=== PATIENT | male | born 1965 | race Caucasian/White ===

== ENCOUNTER 2016-02-19 00:13 | Emergency (ER) | payer OTHER ==
[~2016-02-19] VITALS: Ht 198.1 cm; Wt 135.6 kg
--- NOTE | 2016-02-19 00:44 | ED GI/GU/ABDOMINAL COMPLAINT ---
History of Present Illness General Chief Complaint: General Adult Stated Complaint: PER PT GLUCOSE 491, ABD PAIN Source: patient Exam Limitations: no limitations Vital Signs & Intake/Output Vital Signs & Intake/Output Vital Signs Date Time Temp Pulse Resp B/P Pulse O2 O2 Flow FiO2 Ox Delivery Rate 02/18 0550 97.6 67 18 144/81 94 Room Air 02/18 0026 98.4 83 18 150/91 96 Room Air Allergies Coded Allergies: No Known Allergies (02/19/16) Reconcile Medications Metformin HCl 500 MG TABLET 1 TAB PO QDAY diabetes take one tab a day x 4 days, then one tab in the morning and one tab in the afternoon. Triage Note: LT SIDED ABD PAIN STARTED 2 HRS AGO ELEVATED BS, PT IS NOT A DIAGNOSISED DIABETIC BUT HAS BEEN HAVING INCREASED THRIST,FREQUENCY,FATIGUE,WT LOSS OVER SEVERAL WEEKS Triage Nurses Notes Reviewed? yes Onset: Gradual Duration: day(s):, getting worse Timing: recent history Quality/Severity: cramping Location: left flank Radiation: no radiation Activities at Onset: none Prior Abdominal Problems: none Modifying Factors: Worsens With: palpation. Associated Symptoms: polydipsia, polyuria HPI: 50 yo gentleman h/o donating his kidney to his brother, presents with 1-2 days of polydipsia, polyuria, and generalized weakness. He notes that he bought a glucometer which read in 400's twice. He notes 1 day of left sided abdominal discomfort, but normal bowel movements. No nausea, vomiting, diarrhea, dysuria, fever. He notes that he is thirsty, feels tired, but is otherwise well. He has not seen a physician regularly, but notes that he had a negative stress test and benign labs (including a normal glucose) approximately 1 year ago. Past History Travel History Traveled to [place] past 21 day No Medical History Any Pertinent Medical History? see below for history Neurological: NONE EENT: NONE Cardiovascular: NONE Respiratory: NONE Gastrointestinal: NONE Hepatic: NONE Renal: 1 KIDNEY Musculoskeletal: NONE Psychiatric: NONE Endocrine: NONE Surgical History Surgical History: nephrectomy for donation Psychosocial History What is your primary language Cameroonian Tobacco Use: Never used Family History Hx Contributory? No Review of Systems Review of Systems Constitutional: Reports: no symptoms. EENTM: Reports: no symptoms. Respiratory: Reports: no symptoms. Cardiovascular: Reports: no symptoms. GI: Reports: no symptoms. Genitourinary: Reports: no symptoms. Musculoskeletal: Reports: no symptoms. Skin: Reports: no symptoms. Neurological/Psychological: Reports: no symptoms. Hematologic/Endocrine: Reports: no symptoms. Immunologic/Allergic: Reports: no symptoms. All Other Systems: Reviewed and Negative Physical Exam Physical Exam General Appearance: well developed/nourished, mild distress Head: atraumatic, normal appearance Eyes: Bilateral: normal appearance. Ears, Nose, Throat, Mouth: hearing grossly normal, dry mucosa Neck: normal inspection, supple, full range of motion Respiratory: normal breath sounds, chest non-tender, no respiratory distress, quiet respiration, lungs clear Cardiovascular: regular rate/rhythm Gastrointestinal: normal bowel sounds, soft, mild left sided tenderness. no rebound. no guarding. Back: normal inspection Extremities: normal range of motion Neurologic/Psych: no motor/sensory deficits, awake, alert, oriented x 3 Skin: intact Core Measures ACS in differential dx? No Severe Sepsis Present: No Septic Shock Present: No Progress Differential Diagnosis: cholecystitis, diverticulitis, gastritis, hepatitis, UTI /pyelo, dka Plan of Care: Orders Procedure Date/time Status TROPONIN LEVEL 02/18 0059 Complete LACTIC ACID 02/18 0057 Complete EKG 02/18 0018 Active MIXED VENOUS BLOOD GAS (GEN) 02/18 0016 Active URINALYSIS 02/18 0016 Complete LIPASE 02/18 0016 Complete HEPATIC FUNCTION PANEL 02/18 0016 Complete CBC WITHOUT DIFFERENTIAL 02/18 0016 Complete BASIC METABOLIC PANEL 02/18 0016 Complete AMYLASE 02/18 0016 Complete ACETONE 02/18 0016 Complete Laboratory Tests 02/19/16 0357: Lactic Acid Cancelled 02/19/16 0120: Urine Color STRAW, Urine Clarity CLEAR, Urine pH 6.0, Ur Specific Irving 1.015, Urine Protein TRACE H, Urine Ketones 40 H, Urine Nitrite NEG, Urine Bilirubin NEG, Urine Urobilinogen 0.2, Ur Leukocyte Esterase NEG, Ur Microscopic SEDIMENT EXAMINED, Urine RBC RARE, Urine WBC RARE, Ur Epithelial Cells RARE, Urine Hemoglobin TRACE-LYSED H, Urine Glucose >=1000 H 02/19/16 0100: Bicarbonate Actual 26, Mixed VBG pH 7.38, Mixed VBG pCO2 45, Mixed VBG O2 Saturation 30 L, P-50 (Temp Corrected) N, Carboxyhemoglobin 1.3 L, O2 Delivery Method N, Phlebotomy Draw Site VENOUS 02/19/1658: Lactic Acid 1.1 02/19/1658: Anion Gap 11, Estimated GFR > 60, BUN/Creatinine Ratio 21.1, Glucose 406 H, Calcium 9.2, Total Bilirubin 0.6, Direct Bilirubin 0.4, AST 24, ALT 47, Alkaline Phosphatase 137 H, Troponin I < 0.01, Total Protein 6.8, Albumin 3.6, Amylase < 30 L, Lipase 198, CBC w Diff NO MAN DIFF REQ, RBC 4.60 L, MCV 87.6, MCH 30.5, RDW 13.4, MPV 8.6, Gran % 53.8, Lymphocytes % 35.7, Monocytes % 6.0, Eosinophils % 3.8, Basophils % 0.7, Absolute Granulocytes 4.1, Absolute Lymphocytes 2.7, Absolute Monocytes 0.5, Absolute Eosinophils 0.3, Absolute Basophils 0.1, PUBS MCHC 34.8, Acetone Level NEGATIVE 02/19/1617: Troponin I Cancelled Diagnostic Imaging: Viewed by Me: CT Scan. Discussed w/RAD: CT Scan. Radiology Impression: ABD/PELVIC CT... NO ACUTE DISEASE.. ABSENT KIDNEY... FULL REPORT BELOW. Initial ED EKG: normal axis, normal intervals, normal p-waves, normal QRS complex, normal sinus rhythm Comments: PATIENT: TYLER WOOD PRESENT AGE: 50 PATIENT ACCOUNT NO: [id number] : 65 LOCATION: [facility] ORDERING PHYSICIAN: AGUILA WOOTEN MD SERVICE DATE: 02/19/16 EXAM TYPE: CAT - CT ABD & PELVIS W/O IV CONTRAS EXAMINATION: CT ABDOMEN AND PELVIS WITHOUT CONTRAST CLINICAL INFORMATION: Left-sided abdominal pain. COMPARISON: None. TECHNIQUE: Multidetector volumetric imaging was performed from the superior aspect of the liver through the pubic symphysis. Sagittal and coronal reformatted images were obtained on the technologist's workstation. DLP: 1628 mGy-cm. FINDINGS: LUNG BASES: The visualized lung bases are unremarkable. LIVER, GALLBLADDER, AND BILIARY TREE: Hepatic steatosis is characterized by hypoattenuation of the hepatic parenchyma relative to the spleen. Small foci of focal fatty sparing is seen around the gallbladder fossa. No focal bony lesions are identified. No biliary ductal dilatation. The gallbladder is unremarkable with no evidence of radiopaque gallstones, gallbladder wall thickening, or obvious pericholecystic inflammatory changes. PANCREAS: Unremarkable. SPLEEN: Unremarkable. ADRENAL GLANDS: Unremarkable. KIDNEYS AND URETERS: Left kidney is absent. There is a normal-appearing right kidney with no evidence of nephrolithiasis or hydronephrosis. Right ureter is normal. Minimal right perinephric stranding. BLADDER: Unremarkable. GASTROINTESTINAL TRACT: Stomach, small bowel, and colon are normal in caliber. No bowel wall thickening or surrounding acute inflammatory changes are identified. There is mild haziness of the central abdominal mesentery with a few subcentimeter lymph nodes. The pancreas is normal. No tears. No free fluid or free air. ABDOMINAL WALL: No significant hernia is appreciated. LYMPH NODES: Normal. VASCULAR: Unremarkable. PELVIC VISCERA: Unremarkable. OSSEOUS STRUCTURES: Degenerative disc disease is present in the lower lumbar spine. No fracture or malalignment. There is mild to moderate degenerative arthritis the hip joints with marginal acetabular osteophytes most notably. 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 IMPRESSION: 1. No acute intra-abdominal or intrapelvic abnormalities. 2. Absent left kidney. 3. Hepatic steatosis 4. Multilevel degenerative disc disease in the lumbar spine. DICTATED BY: CHRISSY SANTIZO MD DATE/TIME DICTATED:02/19/16127 MATCHER LEATHER PARTS:EDGAR DATE/TIME TRANSCRIBED:02/19/16127 CONFIDENTIAL, DO NOT COPY WITHOUT APPROPRIATE AUTHORIZATION. <Electronically signed in Other Vendor System> SIGNED BY: CHRISSY SANTIZO MD 02/19/16 0139 Departure Departure Disposition: HOME OR SELF CARE Condition: Stable Clinical Impression Primary Impression: Diabetes mellitus, new onset Secondary Impressions: Abdominal pain Referrals: PATIENT HAS NO PRIMARY CARE DR (PCP/Family) Referred to [facility] as new patient No Departure Forms: Customer Survey General Discharge Information Prescriptions: Current Visit Scripts Metformin HCl 1 TAB PO QDAY #60 TAB take one tab a day x 4 days, then one tab in the morning and one tab in the afternoon. Comments 02/18/15, 3:45am... discussed with dr. lees who affirms metformin as initial choice of medication. She will see patient on saturday. 02/18/15, 6:21am... pt feeling better... glucose 304... insulin 6u sc given as well as metformin... discussed at length with patient and close follow up advised.
[2016-02-19 01:14] LABS: ABSOLUTE BASOPHIL COUNT 0.1 /CUMM (0.0-0.2); ABSOLUTE EOSINOPHIL COUNT 0.3 /CUMM (0.0-0.7); ABSOLUTE GRANULOCYTE CT 4.1 /CUMM (1.4-6.5); ABSOLUTE LYMPH COUNT 2.7 /CUMM (1.2-3.4); ABSOLUTE MONOCYTE COUNT 0.5 /CUMM (0.10-0.60); BASOPHIL % 0.7 % (0.0-2.0); EOSINOPHIL % 3.8 % (0-5); GRANULOCYTE % 53.8 % (42.2-75.2); HEMATOCRIT 40.3 % (42-52); MEAN CORPUSCULAR HGB 30.5 PG (27.0-31.0); MEAN CORPUSCULAR HGB CONC 34.8 G/DL (33.0-37.0); MEAN CORPUSCULAR VOLUME 87.6 FL (80.0-94.0); MEAN PLATELET VOLUME 8.6 FL (7.4-10.4); PLATELET COUNT 152 /CUMM (130-400); RBC DISTRIBUTION WIDTH 13.4 % (11.5-14.5); WHITE BLOOD CELL COUNT 7.6 /CUMM (4.8-10.8)
--- NOTE | 2016-02-19 01:39 | CT SCAN REPORT ---
EXAMINATION: CT ABDOMEN AND PELVIS WITHOUT CONTRAST CLINICAL INFORMATION: Left-sided abdominal pain. COMPARISON: None. TECHNIQUE: Multidetector volumetric imaging was performed from the superior aspect of the liver through the pubic symphysis. Sagittal and coronal reformatted images were obtained on the technologist's workstation. DLP: 1628 mGy-cm. FINDINGS: LUNG BASES: The visualized lung bases are unremarkable. LIVER, GALLBLADDER, AND BILIARY TREE: Hepatic steatosis is characterized by hypoattenuation of the hepatic parenchyma relative to the spleen. Small foci of focal fatty sparing is seen around the gallbladder fossa. No focal bony lesions are identified. No biliary ductal dilatation. The gallbladder is unremarkable with no evidence of radiopaque gallstones, gallbladder wall thickening, or obvious pericholecystic inflammatory changes. PANCREAS: Unremarkable. SPLEEN: Unremarkable. ADRENAL GLANDS: Unremarkable. KIDNEYS AND URETERS: Left kidney is absent. There is a normal-appearing right kidney with no evidence of nephrolithiasis or hydronephrosis. Right ureter is normal. Minimal right perinephric stranding. BLADDER: Unremarkable. GASTROINTESTINAL TRACT: Stomach, small bowel, and colon are normal in caliber. No bowel wall thickening or surrounding acute inflammatory changes are identified. There is mild haziness of the central abdominal mesentery with a few subcentimeter lymph nodes. The pancreas is normal. No tears. No free fluid or free air. ABDOMINAL WALL: No significant hernia is appreciated. LYMPH NODES: Normal. VASCULAR: Unremarkable. PELVIC VISCERA: Unremarkable. OSSEOUS STRUCTURES: Degenerative disc disease is present in the lower lumbar spine. No fracture or malalignment. There is mild to moderate degenerative arthritis the hip joints with marginal acetabular osteophytes most notably. 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 IMPRESSION: 1. No acute intra-abdominal or intrapelvic abnormalities. 2. Absent left kidney. 3. Hepatic steatosis 4. Multilevel degenerative disc disease in the lumbar spine.
[2016-02-19] MEDS ORDERED: METFORMIN HCL500 M3 PO (03:17)
[2016-02-19 05:50] VITALS: BP 144/81
== END 2016-02-19 06:20 ==
LOC: ERH 00:13
PROVIDERS: Pediatrics
DX: E11.9 Type 2 diabetes mellitus without complications (principal); R10.9 Unspecified abdominal pain
CPT/HCPCS: 74176; 81001; 93005; 93010; 96361; 96372; 96374; 96376; J1815